=== PATIENT | female | born 1950 | race Caucasian/White ===

== ENCOUNTER 2018-05-12 08:00 | Outpatient (CLI) | payer MEDICARE, BC | END 2018-05-12 09:00 | disposition home or self-care (01) | LOC: D.MAMMO 08:00 | DX: Z12.31 Encounter for screening mammogram for malignant neoplasm of breast (principal) ==

== ENCOUNTER 2021-04-11 08:22 | Inpatient (IN) | payer MEDICARE, BC ==
[~2021-04-11] VITALS: Ht 154.9 cm; Wt 61.7 kg
[2021-04-11] MEDS ORDERED: LEVO-T50 MCG PO (08:30)
[2021-04-11] MEDS ORDERED: ALENDRONATE SOD35 MG PO (08:30)
[2021-04-11] MEDS ORDERED: OMEPRAZOLE20 M1 PO (08:31)
[2021-04-11] MEDS ORDERED: EFFEXOR XR150 MG PO (08:31)
[2021-04-11] MEDS ORDERED: LIPITOR40 MG PO (08:32)
[2021-04-11] MEDS ORDERED: LOMOTIL 2.5-0.1 EAC1 PO (08:32)
[2021-04-11 09:19] LABS: CARBON DIOXIDE 25.2 mmol/L (21.0-32.0); CREATININE - SERUM 3.7 mg/dL (0.6-1.3); POTASSIUM - SERUM 4.2 mmol/L (3.5-5.1)
[2021-04-11 09:20] LABS: BASOPHILS 0.5 % (0-2); EOSINOPHILS 3.9 % (0-7); HEMATOCRIT 26.2 % (36.0-48.0); HEMOGLOBIN 9.2 g/dL (12-16); LYMPHOCYTES 21.5 % (15-50); MCH 32.3 pg (26.0-34.0); MCHC 35.1 g/dL (31.0-37.0); MCV 92.1 fL (80.0-100.0); MEAN PLATELET VOLUME 8.4 fL (7.4-10.4); MONOCYTES 8.9 % (2-11); NEUTROPHILS 65.2 % (40-80); PLATELET COUNT 202 10x3/uL (130-400); RBC 2.84 10x6/uL (4.00-5.40); RDW 12.7 % (11.5-14.5); WBC 5.8 10x3/uL (4.8-10.8)
[2021-04-11 09:25] LABS: ALBUMIN 3.8 g/dL (3.4-5.0); BILIRUBIN - TOTAL 0.68 mg/dL (0.2-1.3); PROTEIN - SERUM 6.7 g/dL (6.4-8.2)
[2021-04-11 10:58] LABS: BILIRUBIN NEGATIVE (NEGATIVE); KETONE NEGATIVE (NEGATIVE); NITRITE POSITIVE (NEGATIVE); UROBILINOGEN NORMAL mg/dL (< 2)
[2021-04-11 11:00] LABS: BACTERIA MANY HPF (NONE SEEN); SQUAMOUS EPITHELIAL RARE HPF (0-4); WHITE CELLS - URINE 25-50 HPF (0-4)
--- NOTE | 2021-04-11 12:42 | NUR ---
DR. ESPINAL AT BEDSIDE.
[2021-04-11 12:54] LABS: % SATURATION 34 % (15-55); IRON 86 ug/dl (35-150); TOTAL IRON BIND CAPACITY 246 ug/dl (260-445); UNSAT IRON BIND CAPACITY 160 ug/dl (150-375)
[2021-04-11 13:23] LABS: THYROID STIMULATING HORMONE 3.23 uIU/mL (0.36-3.74)
--- NOTE | 2021-04-11 13:23 | NUR ---
PT ARRIVED TO UNIT ACCOMPANIED BY HOSPITAL STAFF. SETTLED INTO ROOM. NO NEEDS VOICED AT THIS TIME. CLIR. BED IN LOWEST POSITION. SIDE RAILS X2
[2021-04-11 14:12] VITALS: BP 138/89; BMI 25.3
[2021-04-11] MEDS ORDERED: ASPIRIN81 MG PO (14:12)
[2021-04-11 15:01] VITALS: BP 136/83
[2021-04-11 16:01] VITALS: BP 137/82
[2021-04-11 21:00] VITALS: BP 148/68
[2021-04-11 23:36] VITALS: BP 164/87
--- NOTE | 2021-04-12 00:54 | NUR ---
04/11/21 @ 1945 RESTING IN BED. ALISA DENIES ANY C/O AT PRESENT. KNOWS THAT SHE IS NPO AFTER MIDNIGHT FOR EGD.
--- NOTE | 2021-04-12 00:56 | NUR ---
SURI FOR C/O NAUSEA. HASN'T SLEPT MUCH TONIGHT.
[2021-04-12 04:00] VITALS: BP 146/88
[2021-04-12 05:30] LABS: BASOPHILS 0.6 % (0-2); EOSINOPHILS 3.1 % (0-7); HEMATOCRIT 22.1 % (36.0-48.0); HEMOGLOBIN 7.7 g/dL (12-16); LYMPHOCYTES 23.7 % (15-50); MCH 32.3 pg (26.0-34.0); MCHC 34.9 g/dL (31.0-37.0); MCV 92.6 fL (80.0-100.0); MEAN PLATELET VOLUME 8.5 fL (7.4-10.4); MONOCYTES 7.6 % (2-11); PLATELET COUNT 169 10x3/uL (130-400); RBC 2.39 10x6/uL (4.00-5.40); RDW 12.9 % (11.5-14.5); WBC 5.2 10x3/uL (4.8-10.8)
[2021-04-12 06:00] LABS: ANION GAP 15.6 mmol/L (8-16); BILIRUBIN - TOTAL 0.32 mg/dL (0.2-1.3); CALCIUM 7.6 mg/dL (8.5-10.1); CREATININE - SERUM 3.1 mg/dL (0.6-1.3); MAGNESIUM - SERUM 2.1 mg/dL (1.8-2.4); PHOSPHOROUS 3.9 mg/dL (2.5-4.9); POTASSIUM - SERUM 4.6 mmol/L (3.5-5.1); PROTEIN - SERUM 5.5 g/dL (6.4-8.2)
[2021-04-12 06:23] VITALS: BP 146/88
--- NOTE | 2021-04-12 08:29 | NUR ---
AM MEDS GIVEN AT THIS TIME, NS INFUSING WITH OUT COMPLICATIONS. PT STATES SOMEONE CAME TO SPEAK TO HER REGARDING HAVING HER GALLBLADDER SCANNED. PT DENIES ANY NEEDS OR PAIN. CLWR. FAMILY AT BEDSIDE.
[2021-04-12 11:36] VITALS: BP 137/77
[2021-04-12 12:37] VITALS: Ht 154.9 cm; Wt 61.7 kg
--- NOTE | 2021-04-12 22:36 | NUR ---
1915- PT SITTING UP IN BED. TALKING ON PHONE. DENIES ANY C/O.
[2021-04-12 23:43] VITALS: BP 138/86
[2021-04-13 03:45] VITALS: BP 132/58
[2021-04-13 06:42] LABS: BASOPHILS 0.8 % (0-2); EOSINOPHILS 4.7 % (0-7); HEMATOCRIT 24.7 % (36.0-48.0); HEMOGLOBIN 8.6 g/dL (12-16); LYMPHOCYTES 24.1 % (15-50); MCH 32.4 pg (26.0-34.0); MCHC 34.9 g/dL (31.0-37.0); MCV 92.8 fL (80.0-100.0); MEAN PLATELET VOLUME 8.5 fL (7.4-10.4); MONOCYTES 10.4 % (2-11); RBC 2.66 10x6/uL (4.00-5.40); RDW 13.5 % (11.5-14.5); WBC 4.8 10x3/uL (4.8-10.8)
--- NOTE | 2021-04-13 07:00 | NUR ---
Lying in bed, awake/alert/oriented, T/R self ad leonidas, cont of B/B with BRPs per self ad leonidas, denies pain/other discomfort at this time, call light/phone/water within reach, no s/s of acute distress observed.
[2021-04-13 07:10] LABS: % SATURATION 29 % (15-55); IRON 61 ug/dl (35-150); TOTAL IRON BIND CAPACITY 207 ug/dl (260-445); UNSAT IRON BIND CAPACITY 146 ug/dl (150-375)
[2021-04-13 07:29] LABS: PLATELET COUNT 133 10x3/uL (130-400)
[2021-04-13 07:56] LABS: ALBUMIN 3.1 g/dL (3.4-5.0); ANION GAP 16.1 mmol/L (8-16); BILIRUBIN - TOTAL 0.35 mg/dL (0.2-1.3); CARBON DIOXIDE 20.1 mmol/L (21.0-32.0); CREATININE - SERUM 3.2 mg/dL (0.6-1.3); MAGNESIUM - SERUM 2.3 mg/dL (1.8-2.4); PHOSPHOROUS 3.6 mg/dL (2.5-4.9); POTASSIUM - SERUM 4.2 mmol/L (3.5-5.1); PROTEIN - SERUM 5.9 g/dL (6.4-8.2); URIC ACID 4.5 mg/dL (2.6-7.2)
[2021-04-13 08:01] LABS: RETIC 0.91 % (0.45-2.28)
[2021-04-13 08:06] VITALS: BP 151/81
[2021-04-13 11:25] VITALS: BP 150/81
[2021-04-13 15:32] VITALS: BP 164/76
--- NOTE | 2021-04-13 15:50 | NUR ---
Off unit for procedure in stable condition via w/c accompanied by hospital staff
--- NOTE | 2021-04-13 17:15 | NUR ---
Return to room in stable condition via w/c accompanied by hospital staff, no s/s of acute distress observed.
[2021-04-13 20:04] VITALS: BP 158/93
[2021-04-14] VITALS (7 sets, daily range): BP systolic 129–168; BP diastolic 75–97
[2021-04-14 07:04] LABS: BASOPHILS 0.8 % (0-2); EOSINOPHILS 5.2 % (0-7); HEMATOCRIT 24.1 % (36.0-48.0); HEMOGLOBIN 8.4 g/dL (12-16); LYMPHOCYTES 17.5 % (15-50); MCHC 34.7 g/dL (31.0-37.0); MCV 92.1 fL (80.0-100.0); MEAN PLATELET VOLUME 8.5 fL (7.4-10.4); MONOCYTES 9.8 % (2-11); NEUTROPHILS 66.7 % (40-80); PLATELET COUNT 142 10x3/uL (130-400); RBC 2.62 10x6/uL (4.00-5.40); RDW 13.1 % (11.5-14.5); WBC 5.3 10x3/uL (4.8-10.8)
[2021-04-14 07:19] LABS: ALBUMIN 2.8 g/dL (3.4-5.0); ANION GAP 13.1 mmol/L (8-16); BILIRUBIN - TOTAL 0.33 mg/dL (0.2-1.3); CALCIUM 8.1 mg/dL (8.5-10.1); CARBON DIOXIDE 23.3 mmol/L (21.0-32.0); CREATININE - SERUM 2.8 mg/dL (0.6-1.3); MAGNESIUM - SERUM 2.3 mg/dL (1.8-2.4); PHOSPHOROUS 3.8 mg/dL (2.5-4.9); POTASSIUM - SERUM 4.4 mmol/L (3.5-5.1); PROTEIN - SERUM 5.4 g/dL (6.4-8.2)
--- NOTE | 2021-04-14 07:32 | NUR ---
AM ROUNDS- PT TALKING ON THE PHONE, A/OX 4, RESP EVEN AND NONLAOBORED ON RA. LT AC INFUSING PLASMALYTE AT 25CC/HR. PT DENIES ANY NEEDS AT THIS TIME. CALL LIGHT IN REACH, WILL CONTINUE PLAN OF CARE.
--- NOTE | 2021-04-14 13:31 | NUR ---
NEW BAG OF PLASMALYTE HUNG AT THIS TIME. PT RESTING COMFORTABLY WITH EYES CLOSED, NAD NOTED, CALL LIGHT IN REACH.
--- NOTE | 2021-04-14 14:52 | NUR ---
325MG OF TYLENOL GIVEN FOR PAIN LEVEL OF 6/10. PT DENIES ANY OTHER NEEDS AT THIS TIME. CALL LIGHT IN REACH.
[2021-04-15 05:19] LABS: BASOPHILS 0.8 % (0-2); EOSINOPHILS 5.8 % (0-7); HEMATOCRIT 22.2 % (36.0-48.0); HEMOGLOBIN 7.9 g/dL (12-16); LYMPHOCYTES 22.2 % (15-50); MCH 32.8 pg (26.0-34.0); MCHC 35.5 g/dL (31.0-37.0); MCV 92.4 fL (80.0-100.0); MEAN PLATELET VOLUME 8.6 fL (7.4-10.4); MONOCYTES 8.9 % (2-11); NEUTROPHILS 62.3 % (40-80); PLATELET COUNT 141 10x3/uL (130-400); RBC 2.41 10x6/uL (4.00-5.40); RDW 13.1 % (11.5-14.5); WBC 5.5 10x3/uL (4.8-10.8)
[2021-04-15 05:28] LABS: ALBUMIN 2.6 g/dL (3.4-5.0); ANION GAP 12.5 mmol/L (8-16); BILIRUBIN - TOTAL 0.24 mg/dL (0.2-1.3); CARBON DIOXIDE 25.6 mmol/L (21.0-32.0); CREATININE - SERUM 2.9 mg/dL (0.6-1.3); MAGNESIUM - SERUM 2.4 mg/dL (1.8-2.4); PHOSPHOROUS 3.9 mg/dL (2.5-4.9); POTASSIUM - SERUM 4.1 mmol/L (3.5-5.1)
[2021-04-15 06:34] VITALS: BP 151/88
[2021-04-15 07:07] VITALS: BP 155/88
[2021-04-15 12:28] VITALS: BP 147/88
[2021-04-15 15:00] VITALS: BP 148/87
--- NOTE | 2021-04-15 17:47 | NUR ---
LT FA PIV DC'D WITH CATH TIP INTACT. NEW 20G PIV INSERTED TO RT WRIST, GOOD BLOOD RETURN, FLUSHES WITH EASE. DEBORAH MNOTALVO STARTED PRBC'S @ 1745
[2021-04-15 19:45] VITALS: BP 154/88
[2021-04-16 00:27] VITALS: BP 175/92
--- NOTE | 2021-04-16 01:55 | NUR ---
C/O HEADACHE. MEDICATED WITH TYLENOL. REGLAN IV ALSO ADMINISTERED. CALL LIGHT IN REACH.
[2021-04-16 04:16] VITALS: BP 174/98
--- NOTE | 2021-04-16 06:35 | NUR ---
PT COMPLETED 1 UNIT OF PRBCS AT BEGINNING OF SHIFT AND HAS RESTED THE NIGHT. AM MED GIVEN. PLASMALYTE @ 125ML/HR INFUSING. BED LOCKED AND LOW. CALL LIGHT IN REACH. REPORT TO ONCOMING NURSE.
[2021-04-16 06:54] LABS: BASOPHILS 0.6 % (0-2); EOSINOPHILS 5.8 % (0-7); HEMATOCRIT 25.5 % (36.0-48.0); LYMPHOCYTES 16.4 % (15-50); MCH 32.7 pg (26.0-34.0); MCHC 35.4 g/dL (31.0-37.0); MCV 92.2 fL (80.0-100.0); MEAN PLATELET VOLUME 8.5 fL (7.4-10.4); MONOCYTES 9.8 % (2-11); NEUTROPHILS 67.4 % (40-80); PLATELET COUNT 128 10x3/uL (130-400); RBC 2.76 10x6/uL (4.00-5.40); RDW 13.5 % (11.5-14.5); WBC 6.7 10x3/uL (4.8-10.8)
[2021-04-16 07:41] LABS: ALBUMIN 2.7 g/dL (3.4-5.0); ANION GAP 16.2 mmol/L (8-16); BILIRUBIN - TOTAL 0.98 mg/dL (0.2-1.3); CARBON DIOXIDE 21.7 mmol/L (21.0-32.0); CREATININE - SERUM 2.7 mg/dL (0.6-1.3); MAGNESIUM - SERUM 2.3 mg/dL (1.8-2.4); PHOSPHOROUS 4.1 mg/dL (2.5-4.9); POTASSIUM - SERUM 3.9 mmol/L (3.5-5.1); PROTEIN - SERUM 5.2 g/dL (6.4-8.2)
[2021-04-16 08:02] VITALS: BP 178/104
--- NOTE | 2021-04-16 09:23 | NUR ---
PATIENT AAOX4, RESP EVEN AND NON LABORED, NO S/S OF DISTRESS, MEDICATIONS ADMINISTERED WITH NO COMPLICATIONS, NO FURTHER NEEDS AT THIS TIME, CLIR, BLP
[2021-04-16 10:10] LABS: BILIRUBIN NEGATIVE (NEGATIVE); KETONE NEGATIVE (NEGATIVE); NITRITE NEGATIVE (NEGATIVE); UROBILINOGEN NORMAL mg/dL (< 2)
[2021-04-16 10:11] LABS: BACTERIA FEW HPF (NONE SEEN); SQUAMOUS EPITHELIAL 0-5 HPF (0-4); WHITE CELLS - URINE 0-5 HPF (0-4)
--- NOTE | 2021-04-16 10:33 | NUR ---
I have reviewed this patient and I concur with the Shift Assessment completed by the Licensed Practical Nurse today this shift.
--- NOTE | 2021-04-16 10:46 | NUR ---
Nutrition Follow-up: Diet: Regular PO intake: 75-100% x 3 meals yeasterday. States that her appetite was good up until this AM. States that she is having some nausea. States that she has been given nausea meds. Last BM: 04/13/21 x 6 (per nursing flowsheets) Wt: 136# (04/12/21) Meds noted: reglan, abx Labs noted: BUN 38(H), Cr 2.7(H), GFR 18(L) Recommend: -Continue regular diet. Encouraged PO intake. Will continue to honor food preferences. -RD will follow-up 04/19/21.
--- NOTE | 2021-04-16 19:00 | NUR ---
REPORT GIVEN BY DEBORAH MCCORMICK.
[2021-04-16 20:00] VITALS: BP 167/95
--- NOTE | 2021-04-16 20:16 | NUR ---
IN PT ROOM TO GIVE MEDS. ROCEPHIN WAS HUNG. SITE LOOKS A LITTLE RED BUT I GOT A NICE BLOOD RETURN. WILL RECHECK. PT HAS NO C/O AT THIS TIME.
[2021-04-16 21:06] LABS: OVA + PARASITE EXAM Final report (())
--- NOTE | 2021-04-16 21:40 | NUR ---
MEDS GIVEN. PT C/O HEADACHE AND RECEIVED ONE TYLENOL. SHE ASKED WHY SHE COULD ONLY HAVE ONE TYLENOL. I TOLD HER TO TALK TO HER PROVIDER IN THE MORNING WHEN ROUNDS ARE MADE.
--- NOTE | 2021-04-16 23:30 | NUR ---
BP RECHECKED ON PT MANUALLY. 150/100. MA STATES SHE STILL HAD A HEADACHE.
[2021-04-17] VITALS: BP 150/100
--- NOTE | 2021-04-17 02:00 | NUR ---
IN PT ROOM TO GIVE IV MEDICATION. PT BARELY WOKE UP WHILE I WAS THERE BUT SHE NODDED THAT SHE WAS OK. NO C/O AT THIS TIME.
--- NOTE | 2021-04-17 03:34 | NUR ---
PT IS RESTING QUIETLY IN HER BED WITH HER EYES CLOSED. SIDERAILS ELEVATED. CALL LIGHT CLOSE AT HAND.
[2021-04-17 04:00] VITALS: BP 150/95
--- NOTE | 2021-04-17 04:47 | NUR ---
PT ASKED FOR ZOFRAN. THIS WAS BROUGHT TO HER. PT THEN ASKED FOR TYLENOL, WHICH WAS BROUGHT TO HER. SHE STATES THAT SHE IS NAUSEATED AND HAS A FULL FEELING IN HER STOMACH. RESTING IN BED AT THIS TIME WATCHING TV.
[2021-04-17 05:49] LABS: BASOPHILS 0.7 % (0-2); EOSINOPHILS 6.9 % (0-7); HEMATOCRIT 28.9 % (36.0-48.0); HEMOGLOBIN 10.2 g/dL (12-16); LYMPHOCYTES 15.5 % (15-50); MCH 32.2 pg (26.0-34.0); MCHC 35.4 g/dL (31.0-37.0); MEAN PLATELET VOLUME 7.9 fL (7.4-10.4); MONOCYTES 9.4 % (2-11); NEUTROPHILS 67.5 % (40-80); PLATELET COUNT 127 10x3/uL (130-400); RBC 3.17 10x6/uL (4.00-5.40); RDW 13.8 % (11.5-14.5); WBC 7.4 10x3/uL (4.8-10.8)
[2021-04-17 06:18] LABS: ALBUMIN 2.9 g/dL (3.4-5.0); BILIRUBIN - TOTAL 0.42 mg/dL (0.2-1.3); CALCIUM 8.1 mg/dL (8.5-10.1); CARBON DIOXIDE 21.9 mmol/L (21.0-32.0); CREATININE - SERUM 2.7 mg/dL (0.6-1.3); MAGNESIUM - SERUM 2.2 mg/dL (1.8-2.4); POTASSIUM - SERUM 3.9 mmol/L (3.5-5.1); PROTEIN - SERUM 5.6 g/dL (6.4-8.2)
[2021-04-17 07:47] LABS: COMPLEMENT C4 5.8 mg/dL (17.4-52.2)
[2021-04-17 07:55] LABS: ERYTHROCYTE SEDIMENTATION RATE 8 mm/hr (0-30)
[2021-04-17] MEDS ORDERED: COREG6.25 MG PO (07:57)
[2021-04-17] MEDS ORDERED: EFFEXOR XR75 MG PO (07:58)
[2021-04-17] MEDS ORDERED: PROTONIX40 MG PO (08:23)
--- NOTE | 2021-04-17 08:25 | MORECARE ---
CASE MANAGEMENT DISCHARGE SUMMARY PATIENT: DOLORES SALCEDO UNIT: [id number] ADM DATE: 04/11/21 AGE: 70 : 50 SEX: F ROOM/BED: D.2109 AUTHOR: HENRRY,DOC PHYSICIAN: REFERRING PHYSICIAN: MARCE ESPINAL MD DATE OF SERVICE: 04/17/21 Case Management Discharge Planning Summary DCP REVIEW SUMMARY ANTICIPATED D/C DATE: 05/17/2021 EXPECTED LOS : 36 CASE STATUS: DCP Initiated INITIAL REVIEW: 04/17/2021 INITIAL REVIEWER: Nadia Wu FINAL DISCHARGE DISPOSITION: : FINAL REVIEWER: FINAL REVIEW DATE: DCP Focus Questions & Answers DCP Screen QUESTION: ANSWER High Risk Factors: : None Walking limitation: Patient stated self rated walking limitation present? : No Age: : 65 - 79 Prior living environment: : Lives with others Disability ranking: : Grade 1: No significant disability DCP Evaluation QUESTION: ANSWER Patient's ability to cope with chronic illness : d. No chronic illness Would patient like to participate in any Care Coordination programs (if applicable): : Not applicable Mental health screen: : No mental health history DCP Re-evaluation QUESTION: ANSWER Would patient like to participate in any Care Coordination programs (if applicable): : Not applicable PATIENT: DOLORES SALCEDO I ENCOUNTER: [id number] MEDICAL RECORD#: [id number] ADMISSION DATE: 04/11/2021 DISCHARGE DATE: ATTENDING MD: MARCE FIORE : AGE: 70 MARITAL STATUS: M DC PLAN ID: [id number] FACILITY: [facility] PRINTED ON: 04/17/21 8:25 CT All edits/amendments must be made on the electronic document DICTATION DATE: 04/17/21824 COVER CREASER: DM 04/17/21824 RPT#: [id number] DC DATE: STATUS: ADM IN [facility] [address] [place] [address] END OF REPORT
--- NOTE | 2021-04-17 08:36 | MORECARE ---
CASE MANAGEMENT DISCHARGE SUMMARY PATIENT: DOLORES SALCEDO UNIT: [id number] ADM DATE: 04/11/21 AGE: 70 : 50 SEX: F ROOM/BED: D.2100 AUTHOR: HENRRY,DOC PHYSICIAN: REFERRING PHYSICIAN: MARCE ESPINAL MD DATE OF SERVICE: 04/17/21 Case Management Discharge Planning Summary COMMENTS ENTERED DATE: 04/17/21 8:28 CT COMMENT TYPE: Discharge Planning REVIEWER: Nadia Wu DC PLAN: Home with spouse ANTICIPATED DC NEEDS: None identified PCP: Dr. Funes in [facility] met with patient to complete initial dc planning assessment. CM educated patient on the CM role and verbal consent given by patient to complete assessment. CM verified patient's address, phone number, and emergency contact phone numbers. Patient lives at [address] [place] [address] with her spouse. At discharge patient plans to return and feels this is a safe discharge. CM discussed availability of home health, rehab services, and medical equipment. Patient denied known discharge needs at this time. Transportation provider at discharge will be her spouse. CM will continue to follow and will assist as needed with dc plans/needs. DCP REVIEW SUMMARY ANTICIPATED D/C DATE: 05/17/2021 EXPECTED LOS : 36 CASE STATUS: DCP Initiated INITIAL REVIEW: 04/17/2021 INITIAL REVIEWER: Nadia Wu FINAL DISCHARGE DISPOSITION: : FINAL REVIEWER: FINAL REVIEW DATE: DCP Focus Questions & Answers DCP Screen QUESTION: ANSWER High Risk Factors: : None Walking limitation: Patient stated self rated walking limitation present? : No Age: : 65 - 79 Prior living environment: : Lives with others Disability ranking: : Grade 1: No significant disability DCP Evaluation QUESTION: ANSWER Patient gives permission to discuss discharge plans with: (name, relationship and number) : Amilcar Salcedo - spouse - [phone] Patient's current cognitive status: : *Oriented to person, place, situation, time and present Patient and/or caregiver agree upon recommended discharge plan? : Yes Patient's ability to cope with chronic illness : d. No chronic illness Physical Status: : Independent with ADL's Family / Caregiver's ability to cope with chronic illness: : a. Adequate (ability to meet patient's medical needs, ensures patient attends medical appts.) Functional screen assessment: : Basic needs can adequately be met by self Does the patient have the ability to pay for or attain post discharge needs / services? : Yes Living Arrangements: : Home with Spouse/Significant Other Is there a likelihood that the patient will require additional services to return to the preadmission environment? : No Equipment needed for post hospitalization: : None Baseline cognitive status: : *Oriented to person, place, situation, time and present Results of this evaluation have been discussed with: : Patient Physical environment modification needed / anticipated for discharge: : No Medication Management: : Patient states can afford medications Pharmacy name(s): : [facility] in [place] PCP is Dr. Funes in [place] Does Patient have transportation to get home and to follow-up medical appointments when discharged from the hospital? : Yes Would patient like to participate in any Care Coordination programs (if applicable): : Not applicable Does the patient have electricity at home? : Yes Does the patient have running water in their house? : Yes Equipment in use: : None Mental health screen: : No mental health history Abuse/Neglect: : None Resources / Services in place: : None DCP Re-evaluation QUESTION: ANSWER Would patient like to participate in any Care Coordination programs (if applicable): : Not applicable PATIENT: DOLORES SALCEDO I ENCOUNTER: [id number] MEDICAL RECORD#: [id number] ADMISSION DATE: 04/11/2021 DISCHARGE DATE: ATTENDING MD: MARCE FIORE : AGE: 70 MARITAL STATUS: M DC PLAN ID: [id number] FACILITY: [facility] PRINTED ON: 04/17/21 8:36 CT All edits/amendments must be made on the electronic document DICTATION DATE: 04/17/21835 INNOVATION MANAGER: DM 04/17/21835 RPT#: [id number] DC DATE: STATUS: ADM IN [facility] [address] [place] [address] END OF REPORT
[2021-04-17 08:39] VITALS: BP 168/93
--- NOTE | 2021-04-17 10:46 | NUR ---
I have reviewed this patient and I concur with the Shift Assessment completed by the Licensed Practical Nurse today this shift.
--- NOTE | 2021-04-17 11:08 | NUR ---
PATIENT AAOX4 RESP EVEN AND NON LABORED, NO S/S OF DISTRESS, MEDICATIONS ADMINISTERED WITH NO COMPLICATIONS, PATIENT IS NAUSEOUS AND NOT FEELING WELL, IV ZOFRAN ADMINISTERED, NO FURTHER NEEDS AT THIS TIME, HECTOR, JERICHOP
[2021-04-17 13:38] VITALS: BP 174/96
--- NOTE | 2021-04-17 14:38 | MORECARE ---
CASE MANAGEMENT DISCHARGE SUMMARY PATIENT: DOLORES SALCEDO UNIT: [id number] ADM DATE: 04/11/21 AGE: 70 : 50 SEX: F ROOM/BED: D.2105 AUTHOR: HENRRY,DOC PHYSICIAN: REFERRING PHYSICIAN: MARCE ESPINAL MD DATE OF SERVICE: 04/17/21 Case Management Discharge Planning Summary COMMENTS ENTERED DATE: 04/17/21 14:27 CT COMMENT TYPE: Discharge Planning REVIEWER: Nadia Wu CM spoke with patient's daughter, Siobhan Dumont [phone]. Siobhan states patient is still having a lot of nausea and is very weak. I spoke with the patient, she is getting up and ambulating in room without difficulty. She declines need for rehab or home health. I informed her that she was going to have a Rx for Zofran ODT ( hard Rx on chart). Patient's daughter states she will call Dr. Funes's office for f/u appointment. I have attempted to call the office several times with a busy signal received. I wanted to send clinical to patient's PCP, but unable to reach them. ENTERED DATE: 04/17/21 8:28 CT COMMENT TYPE: Discharge Planning REVIEWER: Nadia Wu DC PLAN: Home with spouse ANTICIPATED DC NEEDS: None identified PCP: Dr. Funes in [facility] met with patient to complete initial dc planning assessment. CM educated patient on the CM role and verbal consent given by patient to complete assessment. CM verified patient's address, phone number, and emergency contact phone numbers. Patient lives at [address] [place] [address] in [place] [address] with her spouse. At discharge patient plans to return and feels this is a safe discharge. CM discussed availability of home health, rehab services, and medical equipment. Patient denied known discharge needs at this time. Transportation provider at discharge will be her spouse. CM will continue to follow and will assist as needed with dc plans/needs. DCP REVIEW SUMMARY ANTICIPATED D/C DATE: 05/17/2021 EXPECTED LOS : 36 CASE STATUS: DCP Initiated INITIAL REVIEW: 04/17/2021 INITIAL REVIEWER: Nadia Wu FINAL DISCHARGE DISPOSITION: : FINAL REVIEWER: FINAL REVIEW DATE: DCP Focus Questions & Answers DCP Screen QUESTION: ANSWER High Risk Factors: : None Walking limitation: Patient stated self rated walking limitation present? : No Age: : 65 - 79 Prior living environment: : Lives with others Disability ranking: : Grade 1: No significant disability DCP Evaluation QUESTION: ANSWER Patient gives permission to discuss discharge plans with: (name, relationship and number) : Amilcar Salcedo - spouse - [phone] Patient's current cognitive status: : *Oriented to person, place, situation, time and present Patient and/or caregiver agree upon recommended discharge plan? : Yes Patient's ability to cope with chronic illness : d. No chronic illness Physical Status: : Independent with ADL's Family / Caregiver's ability to cope with chronic illness: : a. Adequate (ability to meet patient's medical needs, ensures patient attends medical appts.) Functional screen assessment: : Basic needs can adequately be met by self Does the patient have the ability to pay for or attain post discharge needs / services? : Yes Living Arrangements: : Home with Spouse/Significant Other Is there a likelihood that the patient will require additional services to return to the preadmission environment? : No Equipment needed for post hospitalization: : None Baseline cognitive status: : *Oriented to person, place, situation, time and present Results of this evaluation have been discussed with: : Patient Physical environment modification needed / anticipated for discharge: : No Medication Management: : Patient states can afford medications Pharmacy name(s): : [facility] in [place] PCP is Dr. Funes in [place] Does Patient have transportation to get home and to follow-up medical appointments when discharged from the hospital? : Yes Would patient like to participate in any Care Coordination programs (if applicable): : Not applicable Does the patient have electricity at home? : Yes Does the patient have running water in their house? : Yes Equipment in use: : None Mental health screen: : No mental health history Abuse/Neglect: : None Resources / Services in place: : None DCP Re-evaluation QUESTION: ANSWER Would patient like to participate in any Care Coordination programs (if applicable): : Not applicable PATIENT: DOLORES SALCEDO I ENCOUNTER: [id number] MEDICAL RECORD#: [id number] ADMISSION DATE: 04/11/2021 DISCHARGE DATE: ATTENDING MD: MARCE FIORE : AGE: 70 MARITAL STATUS: M DC PLAN ID: [id number] FACILITY: [facility] PRINTED ON: 04/17/21 14:38 CT All edits/amendments must be made on the electronic document DICTATION DATE: 04/17/211437 CARDIAC CATH TECHNOLOGIST: DORINDA 04/17/21 143 RPT#: [id number] DC DATE: STATUS: ADM IN [facility] [address] [place] [address] END OF REPORT
[2021-04-17 20:07] LABS: SPE - A/G RATIO 1.2 (0.7-1.7); SPE - ALPHA-1 GLOBULIN 0.2 g/dL (0.0-0.4); SPE - ALPHA-2 GLOBULIN 0.6 g/dL (0.4-1.0); SPE - BETA GLOBULIN 0.7 g/dL (0.7-1.3); SPE - GAMMA GLOBULIN 1.1 g/dL (0.4-1.8); SPE - M-SPIKE Not Observed g/dL (Not Observed); SPE - TOTAL PROTEIN 5.6 g/dL (6.0-8.5)
[2021-04-18 09:12] LABS: ANA REFLEX - DIRECT Negative (Negative)
[2021-04-18 12:11] LABS: UPE RAND - ALBUMIN 56.3 % (()); UPE RAND - ALPHA 1 GLOBULIN 5.6 % (()); UPE RAND - ALPHA 2 GLOBULIN 11.1 % (()); UPE RAND - BETA GLOBULIN 14.2 % (()); UPE RAND - GAMMA GLOBULIN 12.8 % (())
[2021-04-18 12:11] LABS: SPE - A/G RATIO 1.3 (0.7-1.7); SPE - ALBUMIN 3.1 g/dL (2.9-4.4); SPE - ALPHA-1 GLOBULIN 0.3 g/dL (0.0-0.4); SPE - ALPHA-2 GLOBULIN 0.6 g/dL (0.4-1.0); SPE - BETA GLOBULIN 0.6 g/dL (0.7-1.3); SPE - GAMMA GLOBULIN 0.9 g/dL (0.4-1.8); SPE - M-SPIKE Not Observed g/dL (Not Observed); SPE - TOTAL PROTEIN 5.5 g/dL (6.0-8.5)
== END 2021-04-17 15:39 | disposition home or self-care (01) | DRG 682 ==
LOC: D.ER 08:22 → D.M2 12:09
PROVIDERS: Emergency Medicine; Family Medicine; Internal Medicine Gastroenterology; Internal Medicine Nephrology; ADMIT Emergency Medicine; ATTEND Emergency Medicine
PROC: 0DB68ZX Excision of Stomach, Via Natural or Artificial Opening Endoscopic, Diagnostic (ICD-10-PCS; principal; 2021-04-12 06:45)
DX: N17.9 Acute kidney failure, unspecified (principal); E43 Unspecified severe protein-calorie malnutrition; N39.0 Urinary tract infection, site not specified; R19.7 Diarrhea, unspecified; E86.0 Dehydration; E87.5 Hyperkalemia; E03.9 Hypothyroidism, unspecified; D64.9 Anemia, unspecified; F32.9 Major depressive disorder, single episode, unspecified; K21.00 Gastro-esophageal reflux disease with esophagitis, without bleeding; K29.70 Gastritis, unspecified, without bleeding; Z68.25 Body mass index [BMI] 25.0-25.9, adult